=== PATIENT | male | born 1950 | race Caucasian/White ===

== ENCOUNTER → 2016-07-24 | Outpatient (CLI) | payer BC ==
[~2016-07-24] MED LIST: ALLO300T2 PO; ASPEC81 PO; ATOR-24 PO; CIPR1TAB11 PO; CLC/300 PO; CLOP1TAB15 PO; COEN200C17 PO; DOXY100C76 PO; DOXY1TAB6; FURO-85 PO; GLUCTAB7 PO; LPT40 PO; METO25TA56 PO; MULTCHW; PLV75 PO; POTA550T4 PO; RIVA1TAB4 PO; VALS320T PO; VALS320T2 PO
--- NOTE | 2016-07-24 15:55 | DIAGNOSTIC IMAGING REPORT ---
Venous Doppler left leg VENOUS DOPP LOWER EXT UNILAT CLINICAL HISTORY: I48.91 Atrial [id number] Lower leg edema IS SCHEDULED A pain. Edema. TECHNIQUE: Venous Doppler COMPARISON STUDY: None FINDINGS: Normal venous Doppler left leg. Several reactive nodes left inguinal region. Soft tissue edema. IMPRESSION: 1. Study is negative for deep venous thrombosis. 2. Soft tissue edema. 3. Enlarged nodes within the left inguinal region possibly reactive given the patient's history Electronically signed by: Chris Nicholson M.D. 07/24/2016 3:54 PM Dictated Date/Time: 07/24/2016 3:52 PM
--- NOTE | 2016-07-24 15:56 | DIAGNOSTIC IMAGING REPORT ---
ARTERIAL DOPPLER ULTRASOUND OF THE [LOWER EXTREMITY CLINICAL HISTORY: Right lower leg edema. Atrial fibrillation. COMPARISON STUDY: No previous studies for comparison. FINDINGS: Brachial arm systolic pressures are 138 mmHg on the right and 130 mmHg on the left. Posterior tibial systolic pressures are 1 to 34 mmHg in the right and 1 44 mmHg on the left. Dorsalis pedis systolic pressures are 123 mmHg on the right and 1 33 mmHg on the left. This pena ankle arm indices of 0.97 on the right and 1.0 for the left. There is triphasic flow within the left common femoral superficial femoral and popliteal arteries. There is triphasic flow within the left anterior tibial, posterior tibial and peroneal arteries. No high velocity jets are visualized. IMPRESSION: No evidence of left lower extremity arterial stenosis. Electronically signed by: Kan Ariza M.D. 07/24/2016 3:55 PM Dictated Date/Time: 07/24/2016 3:53 PM
== END | disposition home or self-care (01) ==
LOC: C.ULTR 14:49
PROVIDERS: ATTEND Physician Assistant
DX: I48.91 Unspecified atrial fibrillation (principal); R60.0 Localized edema; R59.9 Enlarged lymph nodes, unspecified

== ENCOUNTER → 2016-07-24 | Outpatient (CLI) | payer BC ==
[2016-07-24 16:48] LABS: LYME DISEASE AB IGM NEG (NEG)
[2016-07-24 16:51] LABS: LYME DISEASE AB IGG NEG (NEG)
== END | disposition home or self-care (01) ==
LOC: C.LAB1850 11:32
PROVIDERS: ATTEND Physician Assistant
DX: I48.91 Unspecified atrial fibrillation (principal); T14.8 Other injury of unspecified body region; W57.XXXA Bitten or stung by nonvenomous insect and other nonvenomous arthropods, initial encounter; R60.0 Localized edema; R59.9 Enlarged lymph nodes, unspecified

== ENCOUNTER → 2016-08-13 | Outpatient (CLI) | payer BC ==
[2016-08-13 13:17] LABS: BASO % 0.9 %; BASO ABS # 0.04 K/uL (0-0.2); COMPLETE YES; EOS % 3.2 %; HEMATOCRIT 36.3 % (42-52); LYMPH % 27.2 %; LYMPH ABS # 1.18 K/uL (1.2-3.4); MEAN CELL VOLUME 99.5 fL (80-100); MEAN CORPUSCULAR HEMOGLOBIN 33.4 pg (25-34); MEAN CORPUSCULAR HGB CONC 33.6 g/dl (32-36); MEAN PLATELET VOLUME 10.3 fL (7.4-10.4); MONO % 12.7 %; PLATELET COUNT 188 K/uL (130-400); RED BLOOD COUNT 3.65 M/uL (4.7-6.1); WHITE BLOOD COUNT 4.34 K/uL (4.8-10.8)
[2016-08-13 14:56] LABS: ALT/SGPT 55 U/L (12-78); AST/SGOT 47 U/L (15-37); BLOOD UREA NITROGEN 14 mg/dl (7-18); BUN/CREATININE RATIO 13.9 (10-20); CALCIUM 8.9 mg/dl (8.5-10.1); CARBON DIOXIDE 28 mmol/L (21-32); CHLORIDE 99 mmol/L (98-107); GLUCOSE 110 mg/dl (70-99); POTASSIUM 4.4 mmol/L (3.5-5.1); SODIUM 134 mmol/L (136-145); URIC ACID 3.7 mg/dl (2.6-7.2)
[2016-08-13 15:04] LABS: ALKALINE PHOSPHATASE 155 U/L (45-117); PROSTATE SPECIFIC ANTIGEN 0.579 ng/ml (0.000-4.000)
--- NOTE | 2016-08-21 06:23 | CODING QUERY MEDICAL NECESSITY ---
CQSUPPORTING DIAGNOSIS NEEDED A supporting diagnosis is required for the test/procedure performed on this patient in order for us to be reimbursed by the patient's insurance. Please provide a supporting diagnosis for the following test/procedure listed below next to the test name along with your signature. *If there is no additional diagnosis for this patient that would support the following test/procedure please document that below next to the test/procedure. Test(s)/Procedure(s) that require a supporting diagnosis: DOS 08/13/16 PROSTATE SPECIFIC Provider Signature: Date: Thank you Zoya Shirley [employer] Once completed, please kindly fax back to [phone] For questions please call [phone]
== END | disposition home or self-care (01) ==
LOC: C.LABBC 10:13
PROVIDERS: ATTEND Internal Medicine
DX: E83.110 Hereditary hemochromatosis (principal)

== ENCOUNTER 2016-08-20 07:05 | Observation (INO) | payer BC ==
[~2016-08-20] VITALS: Ht 180.3 cm; Wt 79.0 kg
[2016-08-20] VITALS (10 sets, daily range): BP systolic 111–148; BP diastolic 64–100; PULSE 74–97; TEMP 36.3–36.8; O2SAT 95–100; Ht 180.3 cm; Wt 79.0 kg
[~2016-08-20 07:05] MED LIST changes: -ASPEC81 PO; -ATOR-24 PO; -CIPR1TAB11 PO; -CLC/300 PO; -CLOP1TAB15 PO; -COEN200C17 PO; -DOXY100C76 PO; -FURO-85 PO; -GLUCTAB7 PO; -LPT40 PO; -METO25TA56 PO; -PLV75 PO; -POTA550T4 PO; -RIVA1TAB4 PO; -VALS320T2 PO
[2016-08-20] MEDS ORDERED: VALS320T2 PO (07:35)
[2016-08-20] MEDS ORDERED: METO25TA56 PO (07:35)
[2016-08-20] MEDS ORDERED: RIVA1TAB4 PO (07:35)
[2016-08-20] MEDS ORDERED: HEPARIN SOD (PORCINE) 1000 UNIT/ML 10 ML VIAL ONE (08:00)
[2016-08-20] MEDS ORDERED: NiCARDipine HCL INJ 2.5 MG/ML 10 ML AMP ONE (08:00)
[2016-08-20] MEDS ORDERED: FENTANYL CITRATE INJ 50 MCG/1 ML 2 ML VIAL ONE (08:00)
[2016-08-20] MEDS ORDERED: MIDAZOLAM HCL 1 MG/ML 2ML VIAL ONE (08:00)
[2016-08-20] MEDS ORDERED: NITROGLYCERIN/D5W 100MCG/ML 20ML SYR ONE (08:01)
[2016-08-20] MEDS ORDERED: ADENOSINE IV SOLN 3 MG/ML 20 ML VIAL ONE (08:35)
[2016-08-20] MEDS ORDERED: CLOPIDOGREL BISULFATE 300 MG TAB PO ONE (09:17)
[2016-08-20] MEDS ORDERED: IV FLUIDS COMPLETED PRN (09:30)
[2016-08-20] MEDS ORDERED: ONDANSETRON INJ 2 MG/ML 2 ML VIAL IV PRN (09:45)
[2016-08-20] MEDS ORDERED: ACETAMINOPHEN 325 MG TAB PO PRN (09:45)
[2016-08-20] MEDS ORDERED: SODIUM CHLORIDE 0.9% 1000ML 1,000 ML IV SCH (09:45)
--- NOTE | 2016-08-20 09:47 | History & Physical Bridge Note ---
H&P Re-Evaluation Bridge Note: I have examined the patient, reviewed the History & Physical and in the interval since the performance of the History & Physical I have noted the following changes of clinical significance: No changes noted
--- NOTE | 2016-08-20 09:47 | Procedure Note ---
Post-Mod Sedation Assessment General Date of Moderate Sedation August 20, 2016. Vital Signs: Vital Signs Past 12 Hours Date Time Temp Pulse Resp B/P Pulse Ox O2 Delivery O2 Flow Rate FiO2 08/20/16 09:35 Room Air 08/20/16 09:30 Room Air 08/20/16 09:25 94 16 123/98 96 Room Air 08/20/16 07:22 36.4 94 16 148/100 100 Room Air Review - Discharge Criteria Vital Signs Stable: Yes Alert/Oriented/Conversant: Yes Returned to Baseline Mental St: Yes Nausea Absent/Minimal: Yes Pain/Discomfort/Absent/Minimal: Yes Normal/Baseline Respirations: Yes Active Bleeding?: No Pt Received D/C Instructions: N/A Prescriptions Given: None Specific Proced. D/C Criteria Distal Pulses Present (Cardiac: Yes Groin site assessed-Card Cath: N/A Voided Prior To Discharge: N/A Discharged Patients Adult Escort/Transportation: Yes
--- NOTE | 2016-08-20 09:47 | Procedure Note ---
Pre-Mod Sedation Assessment General Date of Moderate Sedation: August 20, 2016. Vital Signs: Vital Signs Past 12 Hours Date Time Temp Pulse Resp B/P Pulse Ox O2 Delivery O2 Flow Rate FiO2 08/20/16 09:35 Room Air 08/20/16 09:30 Room Air 08/20/16 09:25 94 16 123/98 96 Room Air 08/20/16 07:22 36.4 94 16 148/100 100 Room Air Review Cardiovascular: regular rate, rhythm, no edema Abdomen: normal bowel sounds, non tender Lungs: chest non-tender, lungs clear, normal breath sounds Airway Class: II Pre-Sedation Airway Assessment Oral Cavity: WNL Able to Visualize Vocal Cords: Yes Short Thick Neck: No Hx of Sleep Apnea: No Smoking Status: Never Smoker Mallampati Classification: Class II ASA Classification: Class II Procedure Planning Contraindications-for Mod Sed: None Yes Notes The planned sedation has been discussed with the patient and consent obtained. I have identified the patient, determined the appropriateness of sedation and have assessed the patient immediately prior to the procedure. All medicine(s) and interventions are by my order.
--- NOTE | 2016-08-20 10:01 | Cardiac Catheterization ---
Procedure Note Procedure Date August 20, 2016. Pre-Procedure Diagnosis Cardiomyopathy AUC Score 7 Post-Procedure Diagnosis Severe CAD, Successful PCI, Normal Intracardiac Pressures Procedure(s) Performed Coronary Angiography, Left Heart Cath, Drug Eluting Stent, Fractional Flow Felt Talkback Host Dr. Bagley Medication(s) Clopidogrel, Fentanyl, Heparin, Nicardipine, Nitroglycerin, Versed, Lidocaine 1% , Adenosine Summary of Findings Indication: Cardiomyopathy Access: 5Fr Right Radial Artery Catheters: [place], JL 3.5; JL 3.5 guide Findings: LM - Short, luminal irregularities LAD - Heavily calcified proximally with mild luminal irregularities, 60-70% mid LAD stenosis at take-off of small 2nd diagonal; distal luminal irregularities Circumflex - Luminal irregularities RCA - Dominant, calcified proximally; 20-30% mid RCA; distal luminal irregularities LVEDP - 15 FFR of mid LAD -- 0.75 -- PCI -- Antithrombotic therapy: Heparin, Clopidogrel Procedure: LM cannulated with 5Fr JL3.5 guide BMW wire passed across lesion into distal vessel Mid LAD lesion predilated with 2.5 compliant balloon Dilated lesion stented with 2.75 x 18 Resolute TITO Stent post-dilated with 3.0 noncompliant balloon IC vasodilators administered for spasm Post procedure ARVIN 3 flow, stent well expanded with minimal residual stenosis and no apparent cardiac complications. Arterial Closure: TR Band Summary: 1. Severe single vessel coronary artery disease - 60-70% mid LAD stenosis (FFR positive at 0.75) 2. Normal intracardiac filling pressure 3. Nonischemic cardiomyopathy (degree of cardiomyopathy out of proportion to amount of CAD) 4. 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 Continue triple therapy with Xarelto, Clopidogrel, ASA 81 mg for 1 month --> then change to Xarelto, Clopidogrel for 1 year Continue AI/Beta-latoya and AF rate control for presumed NICM Start high-intensity statin and continue ASCVD risk factor modification Consult cardiac Rehab Hemodynamics Rest Ao: 128/76/102 Final Ao: 115/68/89 LV: 111/15 Recommendations Medical therapy and/or Counseling, PCI without planned CABG Specimens None Radiation Exposure (mGy) 746 Contrast (mls) 125 Visi Fluids (cc crystalloids) 120 NS Drains None Anesthesia Moderate (8:17 -- 09:25) Procedural Complication(s) None Disposition PCU ACC Data Cardiac Status Clinical evaluation leading to the procedure CAD Presntation: Sx unlikely to be ischemic Anginal Classification: CCS II Heart Failure: Yes, NYHA Class: CCS II Cardiogenic Shock w/in 24Hrs: No Cardiac Arrest w/in 24Hrs: No Imaging studies past 6 months: Yes Stress studies past 6 months: No Standard Exercise Stress Test: No Stress Echocardiogram: No Stress Testing w/SPECT MPI: No Cardiac CTA: No Coronary Anatomy Dominant: Right Left Main (% Stenosis): Normal LAD (% Stenosis): Mid (60-70) Circumflex (% Stenosis): Normal RCA (% Stenosis): Normal Diagnostic Physician's Name: Williams Bagley MD Status: Elective Closure Device Percutaneous Entry Location: Radial Closure Device: Radial Band Recommendations: Medical therapy and/or Counseling, PCI without planned CABG PCI Indication: Stable Angina Lesion Segment Name: mid LAD Culprit Artery: Yes Stenosis Prior to Rx (%): 70 Chronic Total Occlusion: No IVUS: No FFR: Yes Ratio: less than or equal to 0.75% Pre-Procedure ARVIN Flow: 3 Previously Treated Lesion: No Lesion Complexity: Non-High/Non-C Lesion Length (mm): 15 Thrombus Present: No Bifurcation Lesion: No Guidewire Across Lesion: Yes Guidewire: Stenosis Post-Procedure (%): 0 Post-Procedure ARVIN Flow: 3 Device(s) Deployed: Yes Intraprocedure Events Significant Dissection: No Perforation: No
[2016-08-20 11:31] LABS: MEAN CELL VOLUME 98.1 fL (80-100); MEAN CORPUSCULAR HEMOGLOBIN 33.8 pg (25-34); MEAN PLATELET VOLUME 10.3 fL (7.4-10.4); PLATELET COUNT 149 K/uL (130-400); RED BLOOD COUNT 3.67 M/uL (4.7-6.1); WHITE BLOOD COUNT 6.35 K/uL (4.8-10.8)
[2016-08-20 11:42] LABS: MEAN CORPUSCULAR HGB CONC 34.4 g/dl (32-36)
[2016-08-20 12:03] LABS: CREATININE 0.98 mg/dl (0.60-1.40)
[2016-08-20] MEDS: METOPROLOL TARTRATE 25 MG TAB PO SCH (20:41)
[2016-08-21 04:18] VITALS: BP 121/81; PULSE 86; TEMP 36.6; O2SAT 96
[2016-08-21 06:51] LABS: BASO % 0.5 %; BASO ABS # 0.03 K/uL (0-0.2); COMPLETE YES; EOS % 3.6 %; HEMATOCRIT 38.1 % (42-52); LYMPH % 27.5 %; LYMPH ABS # 1.54 K/uL (1.2-3.4); MEAN CELL VOLUME 97.4 fL (80-100); MEAN CORPUSCULAR HEMOGLOBIN 33.8 pg (25-34); MEAN CORPUSCULAR HGB CONC 34.6 g/dl (32-36); MEAN PLATELET VOLUME 10.2 fL (7.4-10.4); MONO % 13.8 %; NEUT % 54.6 %; PLATELET COUNT 162 K/uL (130-400); RED BLOOD COUNT 3.91 M/uL (4.7-6.1)
[2016-08-21 07:22] LABS: BUN/CREATININE RATIO 12.3 (10-20); CALCIUM 8.5 mg/dl (8.5-10.1); POTASSIUM 3.8 mmol/L (3.5-5.1)
[2016-08-21] MEDS: METOPROLOL TARTRATE 25 MG TAB PO SCH (07:47)
[2016-08-21 08:13] VITALS: BP 132/63; PULSE 84; TEMP 37; O2SAT 97
[2016-08-21] MEDS ORDERED: ATORVASTATIN 40 MG TAB PO SCH (09:00)
[2016-08-21] MEDS ORDERED: RIVAROXABAN 10 MG TAB PO SCH (09:00)
[2016-08-21] MEDS ORDERED: ASPIRIN 81 MG ECTAB PO SCH (09:00)
[2016-08-21] MEDS ORDERED: ALLOPURINOL 300 MG TAB PO SCH (09:00)
[2016-08-21] MEDS ORDERED: CLOPIDOGREL BISULFATE 75 MG TAB PO SCH (09:00)
[2016-08-21] MEDS ORDERED: VALSARTAN/HCTZ 160/12.5 MG TAB PO SCH (09:00)
[2016-08-21 09:27] VITALS: BP 132/63; PULSE 84; TEMP 37; O2SAT 97
[2016-08-21] MEDS ORDERED: LPT40 PO (09:33)
[2016-08-21] MEDS ORDERED: PLV75 PO (09:33)
[2016-08-21] MEDS ORDERED: ASPEC81 PO (09:33)
--- NOTE | 2016-08-21 09:35 | Discharge Instructions ---
Discharge Instructions Procedure Procedure Date: August 21, 2016. Reason for Visit: Cardiomyopathy. Discharge Discharge Date: August 21, 2016. Discharge Diagnosis: Nonischemic cardiomyopathy/Coronary artery disease Last Recorded Wt (Kilograms): 79.000 Anesthesia Post Anesthesia Instructions: If you have had IV Sedation: * Do not drive today. * Resume driving when [employer] permits. * Do not make important decisions or sign legal documents today. * Call surgeon for: 1. Temperature elevations greater than 101 degrees F. 2. Uncontrollable pain. 3. Excessive bleeding. 4. Persistent nausea and vomiting. 5. Medication intolerance (nausea, vomiting or rash). * For nausea and vomiting use only clear liquids such as: tea, soda, bouillon until nausea subsides, then gradually increase diet as tolerated. * If you have any concerns or questions, call your surgeon's office. If physician is unavailable and it is an emergency, call 911 or go to the nearest emergency room. Instructions Activity Recommendations: limitations as noted below Recommended Home Diet: low sodium, low cholesterol Allergies: Coded Allergies: No Known Allergies (Unverified , 01/19/13) Follow Up Additional Instructions: ACTIVITY RECOMMENDATIONS: It is common to feel weak and fatigue for a few days. * Do not drive or operate any motorized equipment for the next day. * Limit stair usage (2 or 3 trips a day only) for the next day. * Do not lift anything heavier than 10 pounds for the next three days. * Do not engage in vigorous exercise or any sports for the next five days. * You may shower the day after your procedure, but do not immerse the area for three days. Cleanse the site gently with soap and water. SPECIAL CARE INSTRUCTIONS: * You may replace the pressure dressing or band-aid the morning after the procedure. * After your procedure, it is normal to have a small bruise or small lump at the site. Examine your site daily for any change in the bruise or lump, redness, swelling, drainage or numbness. Notify your doctor if any change. BLEEDING: * If there is a small amount of bleeding at the site, lie down and apply firm pressure with a clean cloth for ten minutes. When the bleeding stops, lie quietly keeping the procedure limb straight for six hours. Notify your doctor as soon as possible. * If the bleeding does not stop after ten minutes or if there is a large amount of bleeding or spurting, call 911 immediately. Continue to lie down and hold firm pressure until help arrives. SKIN IRRITATION: * You may experience some redness and/or swelling in the area where radiation was administered. If any skin irritation occurs, please contact your family physician. FOLLOW UP VISIT: Keep any scheduled doctor appointments. Follow-up with: Follow-up with Brandy Stroud or Dr. Bagley in 2-3 weeks [facility] Recommendations: Call your doctor if: * Temperature above 101 degrees * Pain not relieved by pain medicine ordered * There is increased drainage or redness from any incision * You have any unanswered questions or concerns. Your Doctors Instructions noted above were prepared by provider Kali Bagley. Patient Signature Section: Patient Instructions Signature Page Stewart Johnson Patient (or Guardian) Signature/Date: I have read and understand the instructions given to me by my caregivers. Caregiver/RN/Doctor Signature/Date: The above-named patient and/or guardian has received patient instructions on this date. + Original Patient Signature Page (only) stays with chart. Please make copy for patient.
--- NOTE | 2016-08-22 13:59 | DISCHARGE SUMMARY ---
PRINCIPAL DIAGNOSES: 1. Nonischemic cardiomyopathy. 2. Coronary artery disease. 3. Atrial fibrillation. 4. Questionable Lyme disease. PROCEDURES: 1. Coronary angiography. 2. FFR assessment of mid LAD lesion. 3. PCI with drug-eluting stent placement to mid LAD. HISTORY OF PRESENT ILLNESS: Mr. Johnson is a very pleasant 66-year-old man with a history of hypertension, hyperlipidemia, anemia, questionable hemochromatosis and recently diagnosed atrial fibrillation who was also recently diagnosed with a new cardiomyopathy with severe LV dysfunction, EF 20%. The patient was referred for cardiac catheterization for further evaluation. HOSPITAL COURSE: The patient underwent cardiac catheterization via right radial artery. He was found to have a left main, circumflex without significant disease. His RCA was dominant with only mild 20-30% narrowing in the mid segment. LAD showed heavy calcifications proximally, only mild luminal irregularities and 60-70% mid LAD stenosis at the takeoff of his second diagonal. As the lesion was thought to be intermediate FFR was undertaken and was positive at 0.75. His LV filling pressures were normal with an LVEDP of 15. Decision was made to proceed with PCI of hemodynamically significant mid LAD lesion. A 2.75 x 18 mm Resolute drug-eluting stent was placed. This was post-dilated to 3.0. The procedure was uncomplicated and good angiographic result was obtained. Post-procedure, the patient was admitted to telemetry for further observation. He had no events on telemetry overnight. He remained in rate controlled atrial fibrillation. He was chest pain free, he had no access site complications and patient was discharged to home with plan for continued followup with his primary care physician Dr. Sommer and cardiology followup in 3-4 weeks. Overall, findings were suggestive overall continue to feel that patient's degree of LV function is out of proportion to the amount of coronary artery disease and primarily his LV function is due to a nonischemic process, hopeful though that with PCI to LAD will help with improvement in LV function and improve symptoms. Going forward, the patient will be continued on aspirin, Plavix, and Xarelto for 1 month. Afterwards would drop to Xarelto and Plavix going forward. If the patient continues to be in atrial fibrillation will consider cardioversion at repeat visit. DISCHARGE MEDICATIONS: 1. Aspirin 81 mg daily. 2. Atorvastatin 40 mg daily. 3. Clopidogrel 75 mg daily. 4. Allopurinol 300 mg daily. 5. Metoprolol tartrate 25 mg b.i.d. 6. Xarelto 20 mg daily. 7. Valsartan/hydrochlorothiazide 320/25 mg daily. MTDD
[2016-09-20] MEDS ORDERED: GLUCTAB7 PO (06:50)
[2016-09-20] MEDS ORDERED: CLOP1TAB15 PO (06:50)
[2016-09-20] MEDS ORDERED: FURO-85 PO (06:50)
[2016-09-20] MEDS ORDERED: ATOR-24 PO (06:50)
[2016-09-20] MEDS ORDERED: DOXY100C76 PO (06:55)
[2016-09-20] MEDS ORDERED: COEN200C17 PO (06:55)
[2016-09-20] MEDS ORDERED: POTA550T4 PO (06:55)
[2016-09-20] MEDS ORDERED: CLC/300 PO (07:57)
[2016-10-10] MEDS ORDERED: CIPR1TAB11 PO (09:39)
== END 2016-08-21 10:49 | disposition home or self-care (01) ==
LOC: ENRESERVDT → ENRESERVTM → C.CATH 07:05 → C.2T 10:48
PROVIDERS: ADMIT Internal Medicine Interventional Cardiology; ATTEND Internal Medicine Interventional Cardiology
DX: I25.10 Atherosclerotic heart disease of native coronary artery without angina pectoris (principal); I48.91 Unspecified atrial fibrillation; I10 Essential (primary) hypertension; R60.0 Localized edema; E78.1 Pure hyperglyceridemia; M10.9 Gout, unspecified; D64.9 Anemia, unspecified

== ENCOUNTER → 2016-09-20 | Day surgery (SDC) | payer BC ==
[2016-09-20] VITALS (7 sets, daily range): BP systolic 103–146; BP diastolic 45–87; PULSE 52–90; TEMP 36.4; O2SAT 95–100; Ht 180.3 cm; Wt 78.5 kg
[~2016-09-20] VITALS: Ht 180.3 cm; Wt 78.5 kg
[~2016-09-20] MED LIST changes: +ASPEC81 PO; +ATOR-24 PO; +CIPR1TAB11 PO; +CLC/300 PO; +CLOP1TAB15 PO; +COEN200C17 PO; +DOXY100C76 PO; -DOXY1TAB6; +FURO-85 PO; +GLUCTAB7 PO; +LIDOCAINE HCL 2% 2 ML VIAL (20MG/ML) ONE; +LPT40 PO; +METO25TA56 PO; +PLV75 PO; +POTA550T4 PO; +PROPOFOL IV EMULSION 10 MG/ML 20 ML VIAL IV ONE; +RIVA1TAB4 PO; -VALS320T PO; +VALS320T2 PO
--- NOTE | 2016-09-20 07:48 | Procedure Note ---
Procedure Note Procedure Date Sep 20, 2016. Procedure Description Procedure Name: External Electrical Cardioversion Procedure time out: patient ID confirmed, correct procedure Consent obtained: written Time of procedure: 07:30 Performed by: attending Indications: diagnostic Contraindications: none Description: External synchronized cardioversion Indication: Persistent atrial fibrillation, possible tachyarrhythmia induced cardiomyopathy Anesthesia provided by Dr. Mancuso. External pads placed in AP position. Received 1 synchronized shock at 200 J Converted to sinus bradycardia with PACs. Complications: none Patient tolerated procedure: well Post-procedure vital signs: reviewed and stable Comments: Successful Electrical Cardioversion
--- NOTE | 2016-09-20 08:02 | Discharge Instructions ---
Discharge Instructions Procedure Procedure Date: Sep 20, 2016. Reason for Visit: Afib With Anethesia. Discharge Discharge Date: Sep 20, 2016. Discharge Diagnosis: Atrial Fibrillation Last Recorded Wt (Kilograms): 78.5 Anesthesia Post Anesthesia Instructions: If you have had General Anesthesia or IV Sedation: * Do not drive today. * Resume driving when surgeon permits. * Do not make important decisions or sign legal documents today. * Call surgeon for: 1. Temperature elevations greater than 101 degrees F. 2. Uncontrollable pain. 3. Excessive bleeding. 4. Persistent nausea and vomiting. 5. Medication intolerance (nausea, vomiting or rash). * For nausea and vomiting use only clear liquids such as: tea, soda, bouillon until nausea subsides, then gradually increase diet as tolerated. * If you have any concerns or questions, call your surgeon's office. If physician is unavailable and it is an emergency, call 911 or go to the nearest emergency room. Instructions Activity Recommendations: limitations (As noted above) Recommended Home Diet: resume previous diet Allergies: Coded Allergies: No Known Allergies (Unverified , 01/19/13) Follow Up Follow-up with: Follow-up as scheduled with cardiology. Follow-up with wound clinic [facility] Recommendations: Call your doctor if: * Temperature above 101 degrees * Pain not relieved by pain medicine ordered * There is increased drainage or redness from any incision * You have any unanswered questions or concerns. Your Doctors Instructions noted above were prepared by provider Kali Bagley. Patient Signature Section: Patient Instructions Signature Page Stewart Johnson Patient (or Guardian) Signature/Date: I have read and understand the instructions given to me by my caregivers. Caregiver/RN/Doctor Signature/Date: The above-named patient and/or guardian has received patient instructions on this date. + Original Patient Signature Page (only) stays with chart. Please make copy for patient.
--- NOTE | 2016-09-20 08:50 | Anesthesiology Progress Note ---
Anesthesia Post Op Note Date & Time Sep 20, 2016 at 08:49 Vital Signs Pain Intensity: 0 Vital Signs Past 12 Hours Date Time Temp Pulse Resp B/P (MAP) Pulse Ox O2 Delivery O2 Flow Rate FiO2 09/20/16 08:30 57 16 98/49 (65) 98 Room Air 09/20/16 08:15 53 16 93/49 (64) 98 Room Air 09/20/16 08:00 57 16 103/60 (74) 99 Room Air 09/20/16 07:45 53 16 108/57 (74) 100 Room Air 09/20/16 07:41 52 16 105/45 (65) 100 Room Air 09/20/16 07:40 53 14 108/46 100 Nasal Cannula 4 09/20/16 07:39 53 10 100 Nasal Cannula 4 09/20/16 07:38 54 10 103/45 100 Nasal Cannula 4 09/20/16 07:35 78 12 140/82 100 Nasal Cannula 4 09/20/16 07:33 88 16 133/87 100 Nasal Cannula 4 09/20/16 06:51 36.4 90 16 146/86 95 Room Air Notes Mental Status: alert / awake / arousable, participated in evaluation Pt Amnestic to Procedure: Yes Nausea / Vomiting: adequately controlled Pain: adequately controlled Airway Patency, RR, SpO2: stable & adequate BP & HR: stable & adequate Hydration State: stable & adequate Anesthetic Complications: no major complications apparent
== END | disposition home or self-care (01) ==
LOC: C.CATH 06:33
PROVIDERS: ATTEND Internal Medicine Interventional Cardiology
DX: I48.1 Persistent atrial fibrillation (principal); I48.2 Chronic atrial fibrillation; I11.0 Hypertensive heart disease with heart failure; I50.21 Acute systolic (congestive) heart failure; I25.10 Atherosclerotic heart disease of native coronary artery without angina pectoris; L97.909 Non-pressure chronic ulcer of unspecified part of unspecified lower leg with unspecified severity; Z95.5 Presence of coronary angioplasty implant and graft; E83.110 Hereditary hemochromatosis; E78.5 Hyperlipidemia, unspecified; D64.9 Anemia, unspecified; Z79.01 Long term (current) use of anticoagulants; Z79.82 Long term (current) use of aspirin; Z79.899 Other long term (current) drug therapy

== ENCOUNTER → 2016-10-07 | Outpatient (CLI) | payer BC ==
[~2016-10-07] MED LIST changes: -ASPEC81 PO; -CLC/300 PO; -LIDOCAINE HCL 2% 2 ML VIAL (20MG/ML) ONE; -LPT40 PO; -PLV75 PO; -PROPOFOL IV EMULSION 10 MG/ML 20 ML VIAL IV ONE
[2016-10-07 13:13] LABS: BASO % 0.9 %; BASO ABS # 0.05 K/uL (0-0.2); COMPLETE YES; EOS % 3.7 %; IG% 0.2 %; LYMPH % 30.7 %; LYMPH ABS # 1.64 K/uL (1.2-3.4); MEAN CELL VOLUME 94.5 fL (80-100); MEAN CORPUSCULAR HEMOGLOBIN 33.6 pg (25-34); MEAN CORPUSCULAR HGB CONC 35.5 g/dl (32-36); MEAN PLATELET VOLUME 10.1 fL (7.4-10.4); MONO % 9.9 %; NEUT % 54.6 %; PLATELET COUNT 192 K/uL (130-400); RED BLOOD COUNT 4.02 M/uL (4.7-6.1); WHITE BLOOD COUNT 5.35 K/uL (4.8-10.8)
[2016-10-07 13:43] LABS: ESTIMATED AVERAGE GLUCOSE 117 mg/dl; HA1C FLAG Normal (Normal)
[2016-10-07 13:56] LABS: ALT/SGPT 52 U/L (12-78); AST/SGOT 48 U/L (15-37); BLOOD UREA NITROGEN 14 mg/dl (7-18); BUN/CREATININE RATIO 16.4 (10-20); CALCIUM 9.2 mg/dl (8.5-10.1); CARBON DIOXIDE 28 mmol/L (21-32); CHLORIDE 94 mmol/L (98-107); CHOLESTEROL 113 mg/dl (0-200); CREATININE 0.86 mg/dl (0.60-1.40); GLUCOSE 90 mg/dl (70-99); MAGNESIUM 2.2 mg/dl (1.8-2.4); POTASSIUM 4.1 mmol/L (3.5-5.1); SODIUM 130 mmol/L (136-145)
[2016-10-07 14:07] LABS: CHOLESTEROL/HDL RATIO 1.5; HDL CHOLESTEROL 77 mg/dl; LDL CHOLESTEROL CALCULATED 24 mg/dl; TRIGLYCERIDES 61 mg/dl (0-150); VERY LOW DENSITY LIPOPROT CALC 12 mg/dl
== END | disposition home or self-care (01) ==
LOC: C.LAB1850 11:34
PROVIDERS: ATTEND Internal Medicine
DX: E78.1 Pure hyperglyceridemia (principal)

== ENCOUNTER → 2017-04-10 | Outpatient (CLI) | payer BC ==
[~2017-04-10] MED LIST changes: -CIPR1TAB11 PO; -DOXY100C76 PO
[2017-04-10 13:13] LABS: BASO % 0.9 %; BASO ABS # 0.04 K/uL (0-0.2); EOS % 2.8 %; EOS ABS # 0.12 K/uL (0-0.5); HEMATOCRIT 35.5 % (42-52); HEMOGLOBIN 12.1 g/dL (14.0-18.0); LYMPH % 27.2 %; LYMPH ABS # 1.18 K/uL (1.2-3.4); MEAN CELL VOLUME 103.5 fL (80-100); MEAN CORPUSCULAR HEMOGLOBIN 35.3 pg (25-34); MEAN CORPUSCULAR HGB CONC 34.1 g/dl (32-36); MEAN PLATELET VOLUME 10.4 fL (7.4-10.4); MONO % 17.7 %; MONO ABS # 0.77 K/uL (0.11-0.59); NEUT % 51.4 %; NEUT ABS # 2.23 K/uL (1.4-6.5); PLATELET COUNT 153 K/uL (130-400); RED CELL DISTRIBUTION WIDTH CV 13.1 % (11.5-14.5); RED CELL DISTRIBUTION WIDTH SD 49.3 fL (36.4-46.3); WHITE BLOOD COUNT 4.34 K/uL (4.8-10.8)
[2017-04-10 13:27] LABS: HEMOGLOBIN A1C 5.4 % (4.5-5.6)
[2017-04-10 14:14] LABS: ALBUMIN 3.9 gm/dl (3.4-5.0); ALKALINE PHOSPHATASE 140 U/L (45-117); ALT/SGPT 39 U/L (12-78); AST/SGOT 46 U/L (15-37); BLOOD UREA NITROGEN 17 mg/dl (7-18); CARBON DIOXIDE 28 mmol/L (21-32); CREATININE 1.06 mg/dl (0.60-1.40); GLUCOSE 98 mg/dl (70-99); SODIUM 133 mmol/L (136-145); TOTAL PROTEIN 7.7 gm/dl (6.4-8.2)
[2017-04-10 14:26] LABS: CHOLESTEROL 103 mg/dl (0-200); LDL CHOLESTEROL CALCULATED 2 mg/dl
== END | disposition home or self-care (01) ==
LOC: C.LABBC 11:19
PROVIDERS: ATTEND Internal Medicine
DX: E78.1 Pure hyperglyceridemia (principal)

== ENCOUNTER 2020-08-17 10:02 | Observation (INO) ==
--- NOTE | 2020-08-14 15:32 | Anesthesiology Consultation ---
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 Preoperative COVID19 testing completed on 08/14, results NEGATIVE. Received preop labs from [facility] that were completed on 08/11/2020. Notably, sodium markedly low at 120. Surgeons office notified and advised that ordering provider should review and contact patient for possible emergent evaluation. Surgeons office was not immediately able to reach the patient. In the meantime, reviewed newly completed office note from CYNTHIA Dwyer with nephrology from 08/11/2020. She had reviewed the 08/11/2020 labs and requested that patient repeat labs today. I was able to reach the patient and instructed him to come to the hospital as soon as possible to repeat these labs. PCP Clearance Appointment 08/11/20 = "Blood work from Friday08/11/20 has been reviewed...Will have patient repeat labs today. Depending on results will evaluate if patient is acceptable for surgery." Repeat labs improved with Na 126. Received subsequent clearance letter from Dr. Sommer stating "Na is usually 128-132. Probably reset osmostat. Confirmation pending. Repeat Na 08/14 was 126. Would repeat immediately before surg - OK if 126 or higher." Cardiology office visit 08/26/19 "Continues to do well from a cardiac standpoint. Remains active and feeling well. NYHA class I equivalent symptoms. Weight stable on maintenance diuretic. On exam today appears well-perfused with no significant congestion. On appropriate guideline directed medical therapy. Remains in persistent atrial fibrillation but well rate controlled. Continue current beta-latoya, anticoagulation with Xarelto. ASCVD risk factors being addressed. Blood pressure well controlled, LDL excellent on current statin. Follow-up in 1 year." Case d/w Dr. Duvall. Will recheck Na AM DOS to ensure stability. INR 3.8 on pre-op labs. Only AC is Xarelto. Spoke to surgeon's office. They were notified of the critical value on Friday 08/11, and advised the patient to stop his Xarelto. It was stopped on 08/12, plan to recheck PT/INR AM DOS. Chart Review Chart Review: Acceptable Risk for Surgery (pending evaluation AM DOS) and Patient NOT seen in Pre Admission Testing History Surgery Operation Date: 08/17/20 11:30 Proposed Procedures p Left Foot Fifth Ray Resection - Rogelio Almanza MD s Achilles Tendon Lengthening - Rogelio Almanza MD Height/Weight Height: 5 ft 10 in Weight: 77.111 kg Allergies Allergy/AdvReac Type Severity Reaction Status Date / Time No Known Allergies Allergy Verified 08/11/20 08:58 Medications Home Medications Medication Instructions Recorded Confirmed Last Taken aspirin 81 mg chewable tablet 81 mg PO QAM #30 tab 10/20/18 08/11/20 05/17/19 07:30 Glucosamine Chondroitin 2 cap PO QAM 05/06/19 08/11/20 05/17/19 07:30 doxycycline monohydrate 100 mg PO Q2D 05/06/19 08/11/20 05/17/19 07:30 sildenafil 50 mg PO DAILY PRN 05/06/19 08/11/20 Unknown furosemide 20 mg tablet 20 mg PO QAM #90 tab 08/26/19 08/11/20 Unknown rivaroxaban 20 mg tablet 20 mg PO QAM #90 tab 08/26/19 08/11/20 Unknown allopurinol 300 mg tablet 300 mg PO QAM #90 tab 11/26/19 08/11/20 Unknown valsartan 320 1 tab PO QAM #90 tab 11/26/19 08/11/20 Unknown mg-hydrochlorothiazide 25 mg tablet atorvastatin 40 mg tablet 40 mg PO HS #90 tab 02/08/20 08/11/20 Unknown metoprolol succinate 50 mg 75 mg PO QAM #135 tab 05/05/20 08/11/20 Unknown tablet,extended release 24 hr Past Medical History Medical History (Updated 08/15/20 @ 16:33 by Cheko Geiger) Anemia Normocytic, baseline HGB ~ 11-12, with recent drop to ~10 on pre-op labs. Atrial fibrillation Presented to ED 07/2016 with tick bite, found to be in afib RVR. Echo showed severe LV dysfunction --> cath w/ TITO to mid LAD. F/U DR THOMAS Cardiomyopathy LV EF 40% 2018. Chronic systolic (congestive) heart failure EF 40% in 2018. Improved from 20-25% at time of Dx in 2016. Coronary artery disease s/p TITO to mid LAD 07/2016. Elevated ferritin F/U DR TESFAYE. Ferritin has been WNL since 2018 per records. Gout Hemochromatosis HCT has actually been low, persistent Hyperlipidemia Hypertension Hyponatremia Chronically 127-131, but noted to be 120 on pre-op labs. Improved to 126 on 08/14. 125 on 08/15. Will recheck AM DOS. Mitral regurgitation Past Family History Family History Father Family hx of colon cancer Aunt Family history of diabetes mellitus Past Surgical History Surgical History History of arthroscopy LEFT History of cardiac cath WITH 1 STENT-[facility] 2016? History of cardioversion History of colonoscopy Status post insertion of drug-eluting stent into left anterior descending artery for coronary artery disease Social History Smoking Status: Former smoker Smoking End Date: IN COLLEGE X 4 YRS Hx Alcohol Use: Yes Alcohol type: beer alcohol intake frequency: 3 or more drinks per day Hx Substance Use: No Lab Results Anesthesia Preop Results Results Anesthesia Widget: WBC 4.53 K/uL (4.8-10.8) L 08/15/20 Hgb 10.4 g/dL (14.0-18.0) L 08/15/20 Hct 30.1 % (42-52) L 08/15/20 Plt 154 K/uL (130-400) 08/15/20 Na 125 mmol/L (136-145) L 08/15/20 K 4.4 mmol/L (3.5-5.1) 08/15/20 Cl 96 mmol/L (98-107) L 08/15/20 CO2 24 mmol/L (21-32) 08/15/20 BUN 20 mg/dl (7-18) H 08/15/20 Creat 1.17 mg/dl (0.6-1.4) 08/15/20 Glucose Level 116 mg/dl (70-99) H 08/15/20 TSH 3.390 uIu/ml (0.300-4.500) 08/14/20 HA1c 5.9 % (4.5-5.6) H 08/15/20 Testing Laboratory Results 08/11/20 PT: 37.7 PTT: 3.8 INR: 52 *Criticals called to surgeon's office on 08/11/20. Pt stopped Xarelto. Electrocardiogram Date: 08/07/20 Afib with slow ventricular response at 42bpm. ST and TWA, consider inferolateral ischemia. *Afib with slow vent. response and ST and TWA also noted in 2017 EKG in [facility] system. Echocardiogram Date: 08/25/17 (per cardio note) Normal LV size, moderate global dysfunction (EF 40%). No regional wall motion abnormalities. Mildly dilated RV, normal RV function. Moderate mitral regurgitation. Biatrial enlargement. Mild pulmonary hypertension (PASP 40-45 mmHg). No significant changes compared to study on 12/13/16. Cardiac Catheterization Date: 08/20/16 Summary: 1. Severe single vessel coronary artery disease - 60-70% mid LAD stenosis (FFR positive at 0.75) 2. Normal intracardiac filling pressure 3. Nonischemic cardiomyopathy (degree of cardiomyopathy out of proportion to amount of CAD) 4. Successful PCI of mid LAD with 2.75x 18 Xience TITO
[~2020-08-17 10:02] MED LIST changes: -ALLO300T2 PO; -ATOR-24 PO; -CLOP1TAB15 PO; -COEN200C17 PO; -FURO-85 PO; -GLUCTAB7 PO; +LR 15ML/HR IV SCH; -METO25TA56 PO; -MULTCHW; -POTA550T4 PO; -RIVA1TAB4 PO; -VALS320T2 PO; +ceFAZolin 1000MG 1,000 MG/7.5 ML SYR IV SCH
[2020-08-17 10:51] LABS: INR 1.2 (0.9-1.1); Partial Thromboplastin Ratio 1.2; Prothrombin Time 12.2 Seconds (9.0-12.0)
[2020-08-17 11:16] LABS: Potassium 4.5 mmol/L (3.5-5.1)
[2020-08-17 11:17] LABS: BUN Creatinine Ratio 21.4 (10-20); Calcium 9.2 mg/dl (8.5-10.1); Creatinine Clr Calc Pharmacy 62.1 ml/min; Est GFR (African American) 76.5 ml/min
[2020-08-17] MEDS ORDERED: ROPIVACAINE 0.5% 5 MG/ML 30 ML VIAL ONE (11:38)
[2020-08-17] MEDS ORDERED: MIDAZOLAM HCL 1 MG/ML 2ML VIAL ONE (11:45)
[2020-08-17] MEDS ORDERED: fentaNYL citrate 100 MCG/2 ML VIAL ONE (11:45)
[2020-08-17] MEDS ORDERED: ONDANSETRON INJ 2 MG/ML 2 ML VIAL ONE (11:45)
[2020-08-17] MEDS ORDERED: PROPOFOL IV EMULSION 10 MG/ML 20 ML VIAL IV ONE (11:45)
[2020-08-17] MEDS ORDERED: DEXAMETHASONE SOD INJ 4 MG/ML VIAL ONE (11:45)
--- NOTE | 2020-08-17 13:49 | History & Physical Bridge Note ---
Date of Service August 17, 2020 History & Physical Bridge Note I have examined the patient, reviewed the History & Physical and in the interval since the performance of the History & Physical I have noted the following changes of clinical significance: no changes noted. INR normal. Sodium within acceptable limits.
[2020-08-17] MEDS ORDERED: ONDANSETRON INJ 2 MG/ML 2 ML VIAL IV PRN ×2 (13:53→16:56)
[2020-08-17] MEDS ORDERED: fentaNYL citrate 100 MCG/2 ML VIAL IV PRN (13:53)
[2020-08-17] MEDS ORDERED: ATROPINE SULFATE 0.1 MG/ML 10ML SYR IV PRN (13:53)
[2020-08-17] MEDS ORDERED: VANCOMYCIN HCL 1000MG/20ML VIAL ONE (14:04)
[2020-08-17] MEDS ORDERED: GENTAMICIN SULFATE 40 MG/ML 2 ML VIAL ONE (14:05)
[2020-08-17] MEDS ORDERED: BUPIVACAINE/EPINEPHRINE 0.5% MPF 1:200,000 30 ML VIAL ONE (14:17)
[2020-08-17] MEDS ORDERED: LIDOCAINE 1% LOCAL 20 ML VIAL ONE (14:18)
[2020-08-17] MEDS ORDERED: ePHEDrine sulfate 50 MG/ML SYR ONE (14:52)
--- NOTE | 2020-08-17 15:57 | Operative Report ---
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 Anesthesia Type General Complications none Disposition Accompanied Patient To Recovery: No Disposition: Recovery Room Indications Mr. Johnson has a plantar ulceration left foot fifth metatarsal phalangeal joint with radiographic findings consistent with osteomyelitis. He is taken to surgery for treatment Description of Procedure Informed consent obtained. Patient identified. He identified the operative site as the left foot fifth ray. Preop surgical timeout performed. Preop dose of IV antibiotics given. He was taken to the operating room positioned supine on the OR table. Tourniquet applied to the left thigh. Limb exsanguinated with gravity and the tourniquet inflated after prepping with Betadine and prescribing. There was a 1-1/2 cm ulceration on the plantar aspect of the fifth metatarsophalangeal joint which I did not directly communicate to the bone. The foot was not notably swollen or erythematous. DVT prophylaxis with early mobility. Postoperatively he will be placed back on his blood thinner. A tennis racquet type incision was made around the base of the fifth toe carried proximally. Subperiosteal dissection was performed along the proximal shaft. About 3 cm distal to the base of the fifth metatarsal this was transected under fluoroscopic guidance beveling from medial to lateral and dorsal to plantar. Stump was smoothed with rongeur. The tennis racquet incision was carried around the toe and around the capsular layer to dissect out the metatarsal phalangeal joint and remove the remainder of the fifth ray. The tendons were amputated as far proximal as possible and allowed to retract. The plantar ulceration was debrided and slightly enlarged to remove some hypertrophic tissue. Reactive bursitis and granulation tissue was noted underneath this and prior to removal of the toe this communicated directly with the irregular fifth metatarsal phalangeal joint. In the foot copious irrigation was performed and meticulous hemostasis was done after letting the tourniquet down. There was no abscess and the remaining tissue appeared to be healthy with good circulation and skin flaps. The skin edges were trimmed as necessary and then the surgical incision was closed with interrupted 2-0 nylon. The wound itself was packed with iodoform gauze coming out the ulceration. Fluffs were placed between the toes Xeroform applied 4 x 4's ABDs cast padding Anival wrap. His postop shoe will be applied once he reaches the floor. I took a bone biopsy from the metatarsal head and base the proximal phalanx as well as a culture from the same area. This was sent for culture. The resected digit was sent for specimen. There were no complications. Counts were correct. Blood loss was 5 cc. At the conclusion the operation spoke patient's family informed of my findings postop instructions were given. Plan is admit to the hospital and get a medicine consult. Placed on IV antibiotics. Restart his blood thinner. He can weight-bear as tolerated on his heel. Wound care consult and hopefully apply wound VAC tomorrow and follow-up in wound care clinic. Harvest Supervisor fluoroscopic image obtained. I attest to the content of the Intraoperative Record and any orders documented therein. Any exceptions are noted below.
--- NOTE | 2020-08-17 16:16 | Anesthesiology Progress Note ---
Date of Service August 17, 2020 Anesthesia Post Procedure Vital Signs Vital Signs: Temp Pulse Pulse Resp BP Pulse Ox 08/17/20 16:05 59 L 18 125/65 98 08/17/20 15:58 36.1 C L 52 L 14 136/70 100 08/17/20 10:38 36.6 C 61 20 156/71 H 98 Transfer of Care Handoff Completed per policy Notes Mental Status: alert / awake / arousable Patient Amnestic to Procedure: Yes Nausea / Vomiting: adequately controlled Pain: adequately controlled Airway Patency, RR, SpO2: stable & adequate BP & HR: stable & adequate Hydration State: stable & adequate Anesthetic Complications: no major complications apparent
[2020-08-17] MEDS ORDERED: bisacodyL 10 MG SUPP PR PRN (16:56)
[2020-08-17] MEDS ORDERED: NALOXONE HCL 0.4 MG/1 ML VIAL/CARP IV PRN (16:56)
[2020-08-17] MEDS ORDERED: TAMSULOSIN HCL 0.4 MG CAP PO PRN (16:56)
[2020-08-17] MEDS ORDERED: MAGNESIUM HYDROXIDE SUSP 30 ML UDC PO PRN (16:56)
[2020-08-17] MEDS ORDERED: traMADol HCL 50 MG TABLET PO PRN (16:56)
[2020-08-17] MEDS ORDERED: oxyCODONE HCL IR 5 MG TAB (IMMEDIATE RELEASE) PO PRN (16:56)
[2020-08-17] MEDS ORDERED: HYDROmorphone INJ 0.5 MG/0.5 ML SYR IV PRN (16:56)
[2020-08-17] MEDS: SODIUM CHLORIDE 0.9% 1000ML 1,000 ML IV SCH (17:17)
[2020-08-17] MEDS ORDERED: TRANEXAMIC ACID / 0.7% NACL 1,000 MG/100 ML BAG IV ONE (17:45)
[2020-08-17] MEDS: AMPICILLIN/SULBACTAM SOD 3,000 MG in 0.9 % SODIUM CHLORIDE 100 ML IV SCH ×2 (17:53→23:39)
--- NOTE | 2020-08-17 19:48 | Hospitalist Progress Note ---
Date of Service August 17, 2020 Assessment & Plan (1) Hyponatremia: Overall stable. Continue to follow periodically. No symptoms related to this. (2) Cardiomyopathy: Stable, no shortness of breath. Continue current meds. Follow. (3) Loss of sensation: Likely led to the foot wounds that led to his osteomyelitis. We will try to review records, otherwise outpatient follow-up (4) Atrial fibrillation: Rate controlled, anticoagulated with Xarelto (5) Arteriosclerosis of coronary artery: No angina. Continue home meds. (6) Hypertension: Blood pressure acceptable. Continue home meds. (7) DVT prophylaxis: Xarelto (8) Discharge planning issues: Per orthopedics. Admission and Anticipated Discharge Date Admission Date: August 17, 2020 Subjective Feeling good. No pain. 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 He has been struggling with osteomyelitis for a while and is happy to hopefully be past this. I notes most of his cardiac history was to the best of his knowledge noted on testing not due to symptomatic illness. Review of Systems Review of Systems: All systems reviewed & are unremarkable except as noted in HPI & below Physical Exam Physical Exam: In general he is awake and alert pleasant no distress. HEENT normocephalic atraumatic mucous membranes moist. Breathing unlabored no accessory muscle use good effort. Skin shows no rashes no pallor or icterus. Neuro shows no focal deficits. Results & Data [facility] Vital Signs (Past 12 Hours) Vital Signs Temp Pulse Pulse Resp BP Pulse Ox 08/17/20 18:43 97.5 F L 63 18 134/67 100 08/17/20 17:45 97.5 F L 54 L 18 138/53 L 98 08/17/20 17:15 57 L 18 132/57 L 100 08/17/20 16:45 97.9 F 56 L 18 132/64 08/17/20 16:35 97.2 F L 56 L 17 130/78 99 08/17/20 16:25 55 L 20 125/76 99 08/17/20 16:15 58 L 18 119/78 100 08/17/20 16:05 59 L 18 125/65 98 08/17/20 15:58 97.0 F L 52 L 14 136/70 100 08/17/20 10:38 97.9 F 61 20 156/71 H 98 PG Care Time/CCT Total # of Minutes Spent Total Time Spent with Patient: Total time spent is greater than 50% in coordination of care (as documented) at patient's floor/unit and/or counseling patient: Coding Level of Care Code 19027 Subseq Hosp Care Lvl 2 Diagnoses Hyponatremia E87.1 Cardiomyopathy I42.9 Loss of sensation R20.0 Atrial fibrillation I48.91 Arteriosclerosis of coronary artery I25.10 Hypertension I10 DVT prophylaxis Z29.9 Discharge planning issues Z02.9
[2020-08-17] MEDS: ACETAMINOPHEN 500 MG TAB PO SCH (20:27)
[2020-08-17] MEDS: DOCUSATE SODIUM 100 MG CAP PO SCH (20:27)
[2020-08-17] MEDS ORDERED: ATORVASTATIN 40 MG TAB PO SCH (21:00)
[2020-08-17] MEDS ORDERED: SENNA 8.6 MG TAB PO SCH (21:00)
[2020-08-18] MEDS: SODIUM CHLORIDE 0.9% 1000ML 1,000 ML IV SCH (05:18)
[2020-08-18] MEDS: ACETAMINOPHEN 500 MG TAB PO SCH ×2 (05:22→13:15)
[2020-08-18] MEDS: AMPICILLIN/SULBACTAM SOD 3,000 MG in 0.9 % SODIUM CHLORIDE 100 ML IV SCH ×2 (05:22→11:58)
[2020-08-18 05:49] LABS: Hematocrit (blood only) 29.5 % (42-52); Hemoglobin 10.2 g/dL (14.0-18.0); Mean Corpuscular Hgb Conc 34.6 g/dL (32-36); Mean Corpuscular Volume 89.7 fL (80-100); Mean Platelet Volume 9.7 fL (7.4-10.4); Platelet Count 138 K/uL (130-400); RDW Coefficient of Variation 14.8 % (11.5-14.5); RDW Standard Deviation 48.5 fL (36.4-46.3); Red Blood Count 3.29 M/uL (4.7-6.1)
[2020-08-18 06:27] LABS: BUN Creatinine Ratio 22.1 (10-20); Calcium 8.3 mg/dl (8.5-10.1); Creatinine Clr Calc Pharmacy 73.3 ml/min; Est GFR (African American) 93.5 ml/min; Est GFR (Non-African American) 80.7 ml/min; Potassium 4.8 mmol/L (3.5-5.1)
[2020-08-18] MEDS: DOCUSATE SODIUM 100 MG CAP PO SCH (07:21)
[2020-08-18] MEDS ORDERED: METOPROLOL SUCC 25MG EXT REL TAB PO SCH (09:00)
[2020-08-18] MEDS ORDERED: VALSARTAN 80 MG TAB PO SCH (09:00)
[2020-08-18] MEDS ORDERED: ASPIRIN 81 MG ECTAB PO SCH (09:00)
[2020-08-18] MEDS ORDERED: hydroCHLOROthiazide 25 MG TAB PO SCH (09:00)
[2020-08-18] MEDS ORDERED: allopurinoL 300 MG TAB PO SCH (09:00)
[2020-08-18] MEDS ORDERED: RIVAROXABAN 20 MG TAB PO SCH (09:00)
[2020-08-18] MEDS ORDERED: MULTIVITAMIN TAB PO SCH (09:00)
[2020-08-18] MEDS ORDERED: FUROSEMIDE 20 MG TAB PO SCH (09:00)
--- NOTE | 2020-08-18 09:11 | Progress Notes ---
DATE: 08/18/2020 Out of bed in chair. No pain or any problems. He is afebrile. His vital signs are stable. Fluid balance noted. White count 4, hemoglobin 10, hematocrit 30, platelets 138. PT/INR, PTT noted. PRP noted. Dressing clean and dry. Boot in place, although he can change this to a postop shoe. He can wiggle his toes. Dressing clean and dry. Sensation is minimal if any. Capillary refill less than 2 seconds, foot warm. Cultures and pathology pending. He is status post partial fifth ray resection, left foot for osteomyelitis. He can partial weightbear on his heel, use walker or knee scooter. Postop shoe or a boot. Elevate. We will continue on IV Unasyn for the time being. He is restarted on his Xarelto. PLAN: I spoke with Dr. Woodward. We will need to coordinate care regarding antibiotics. Options are sent home with some IV antibiotics for a short period of time of discharge on orals. Whether or not to get an ID consult as well. In terms of the wound itself, we will see if the wound care nurse can remove the packing and apply a wound VAC today and arrange followup in the [facility]ound Care Center.
--- NOTE | 2020-08-18 10:16 | Orthopedic Progress Note ---
Date of Service August 18, 2020 Assessment & Plan (1) Acute osteomyelitis: Weightbearing as tolerated with boot in place and ambulatory assistive device if necessary Currently on IV Unasyn. Discharge antibiotics will be determined by medicine service DVT prophylaxis with Xarelto Pain control with p.o. medication To see wound care nurse later today for wound VAC placement. She will coordinate follow-up examination at the wound care center Patient is already scheduled to see an infectious disease specialist in [place] Patient has his follow-up appointment in our clinic with Dr. Almanza on August 28 at 1 PM If patient has questions or concerns he was advised to contact our clinic at Admission and Anticipated Discharge Date Admission Date: August 17, 2020 Subjective This pleasant 70-year-old male seen this morning. He is day 1 status post Left Foot Fifth Ray Partial Resection due to osteomyelitis. Patient states that he has neuropathy in the left foot has been a problem for many years. Currently he states that he feels fine. He states that he has scheduled to see the wound care nurse to have a wound VAC put on his left Foot. Patient states that he also has a appointment with an infectious disease physician in [place] on August 29. Currently he is on oral Antibiotics per the medicine service. States his pain is well controlled. His dressing seems to be intact and the boot is in place. He denies chest pain, shortness of breath, fever, chills, sweats, lethargy or fatigue. Review of Systems Review of Systems: All systems reviewed & are unremarkable except as noted in Subjective Physical Exam Physical Exam: Left foot: Dressing was left in place as was the boot. Patient is able to move the digits of his left foot but is unable to detect light sensation to touch over the pads of the digits. His calf is soft and supple nontender to palpation. He is able to perform a straight leg raise test. He was up walking with Occupational Therapy with the boot in place and had no difficulty or pain. Quad strength is 4-5. He is neurovascularly intact. Results & Data ([facility]) Vital Signs (Past 12 Hours) Vital Signs Temp Pulse Resp BP Pulse Ox 08/18/20 07:31 36.4 C L 53 L 17 120/70 100 08/18/20 04:06 36.6 C 54 L 18 119/70 96 08/17/20 23:37 36.6 C 53 L 18 121/71 94 Laboratory Results 08/18/20 08/18/20 08/17/20 Range/Units 05:36 05:36 10:25 WBC 3.70 L (4.8-10.8) K/uL RBC 3.29 L (4.7-6.1) M/uL Hgb 10.2 L (14.0-18.0) g/dL Hct 29.5 L (42-52) % MCV 89.7 (80-100) fL MCH 31.0 (25-34) pg MCHC 34.6 (32-36) g/dL RDW Std Deviation 48.5 H (36.4-46.3) fL RDW Coeff of Dulce 14.8 H (11.5-14.5) % Plt Count 138 (130-400) K/uL MPV 9.7 (7.4-10.4) fL PT (9.0-12.0) Seconds INR (0.9-1.1) APTT (21.0-31.0) Seconds PTT Ratio Sodium 133 L 132 L (136-145) mmol/L Potassium 4.8 4.5 (3.5-5.1) mmol/L Chloride 105 101 (98-107) mmol/L Carbon Dioxide 22 27 (21-32) mmol/L Anion Gap 6.0 4.0 (3-11) BUN 21 H 24 H (7-18) mg/dl Creatinine 0.94 1.11 (0.6-1.4) mg/dl Est Cr Clr Drug Dosing 73.3 62.1 ml/min Est GFR ( Amer) 93.5 76.5 ml/min Est GFR (Non-Af Amer) 80.7 66.0 ml/min BUN/Creatinine Ratio 22.1 H 21.4 H (10-20) Glucose 123 H 104 H (70-99) mg/dl Calcium 8.3 L 9.2 (8.5-10.1) mg/dl 08/17/20 Range/Units 10:25 WBC (4.8-10.8) K/uL RBC (4.7-6.1) M/uL Hgb (14.0-18.0) g/dL Hct (42-52) % MCV (80-100) fL MCH (25-34) pg MCHC (32-36) g/dL RDW Std Deviation (36.4-46.3) fL RDW Coeff of Dulce (11.5-14.5) % Plt Count (130-400) K/uL MPV (7.4-10.4) fL PT 12.2 H (9.0-12.0) Seconds INR 1.2 H (0.9-1.1) APTT 31.0 (21.0-31.0) Seconds PTT Ratio 1.2 Sodium (136-145) mmol/L Potassium (3.5-5.1) mmol/L Chloride (98-107) mmol/L Carbon Dioxide (21-32) mmol/L Anion Gap (3-11) BUN (7-18) mg/dl Creatinine (0.6-1.4) mg/dl Est Cr Clr Drug Dosing ml/min Est GFR ( Amer) ml/min Est GFR (Non-Af Amer) ml/min BUN/Creatinine Ratio (10-20) Glucose (70-99) mg/dl Calcium (8.5-10.1) mg/dl
--- NOTE | 2020-08-18 10:50 | Discharge Summary ---
Date of Service August 18, 2020 Admission HPI Per Admitting Provider HISTORY OF PRESENT ILLNESS: Patient is here today for preoperative history and physical. He is scheduled to have a left foot 5th ray resection and Achilles tendon lengthening with Dr. Almanza on August 15, 2020. He has been having an ongoing wound to his left foot for the last couple of years. He states that it has healed up through the [facility] in the past, but recurred about a year ago. It was small in size. Recently, the wound has gotten larger and he went to the [facility]. They took an x-ray and referred him for further treatment. He is currently on an antibiotic, taking Bactrim. There is no history of injury. He does not get any regular type of foot care. He has neuropathy. He has special shoes, but does not necessarily use them. He is currently in a postop shoe. He had x-rays, which showed a dislocation of the left foot 5th metatarsophalangeal joint with dissolution of the metatarsal neck consistent with osteomyelitis. Due to these findings and his failure of conservative treatment, surgical intervention was recommended. He does agree to proceed with surgery. Admission Exam Per Admitting Provider PHYSICAL EXAM: General: He is alert and oriented x3. Well-dressed, well- nourished male. Normal mood and affect. Height 178 cm, weight is 78 kg, BMI is 24.62. HEENT: Head: Atraumatic, normocephalic. Eyes: Extraocular movements intact. Pupils equal, round, and reactive to light. Sclerae are normal. Ears: Hearing is grossly normal. TMs are clear with normal light reflex. Nose: Nares are patent bilaterally. Throat: Oropharynx is clear. Mucous membranes moist. Good dentition. Neck: Supple. No lymphadenopathy. Nontender to palpation. Lungs: Clear to auscultation bilaterally. No adventitious sounds. Abdomen: Soft, nontender, nondistended. Normal bowel sounds heard in all 4 quadrants. Heart: Regular rate and rhythm. Normal S1, S2. No murmurs, rubs, or gallops appreciated. On exam of his left foot, Silf[place]old test is trace positive. Dorsalis pedis and posterior tibial pulses are 1+. There is a 1.5 cm ulceration on the plantar aspect of the 5th metatarsophalangeal joint with granulating base. Dependent rubor. Mild edema. Increased flexor tone. The foot is neutrally aligned. There is no tenderness to palpation. He can wiggle the toes and has good movement of the ankle. Positive serous drainage globally. Diminished sensation. 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 Osteomyelitis of his left 5th toe. Discharge Exam Left foot: Dressing was left in place as was the boot. Patient is able to move the digits of his left foot but is unable to detect light sensation to touch over the pads of the digits. His calf is soft and supple nontender to palpation. He is able to perform a straight leg raise test. He was up walking with Occupational Therapy with the boot in place and had no difficulty or pain. Quad strength is 4-5. He is neurovascularly intact. Discharge Data Allergies Allergy/AdvReac Type Severity Reaction Status Date / Time No Known Allergies Allergy Verified 08/17/20 10:30 Consultations 08/17/20 16:56 Consult Hospitalist Routine Procedures Performed Operation Date: 08/17/20 11:40 Actual Procedures p Left Foot Fifth Ray Partial Resection(Left) - Rogelio Almanza MD Ordered Studies 08/17/20 05:00 US - OR guided needle placemen Routine Hospital Course (1) Acute osteomyelitis: Patient had uneventful overnight stay. However, the wound care nurse was unable to apply the wound vac today due to bleeding. Bulky dressing reapplied and he will follow up at the Wound clinic on 08/23/20. He is scheduled for his f/u with Dr. Almanza 08/28/20 @ 1 PM. Weightbearing as tolerated with boot in place and ambulatory assistive device if necessary Currently on IV Unasyn. Discharge antibiotics will be determined by medicine service DVT prophylaxis with Xarelto Pain control with p.o. medication To see wound care nurse later today for wound VAC placement. She will coordinate follow-up examination at the wound care center Patient is already scheduled to see an infectious disease specialist in [place] Patient has his follow-up appointment in our clinic with Dr. Almanza on August 28 at 1 PM If patient has questions or concerns he was advised to contact our clinic at [phone] Total Time Total Time Spent Total Time Spent (In Minutes): 20 mins Total Time Includes: Examination of the Patient, Discharge Planning, Medication Reconciliation and Communication With Other Providers Discharge Plan Discharge Items Patient Disposition: Home - Self-Care Reason For Visit: Left 5th Toe Osteomylitis Discharge Diagnosis: Left 5th Toe Osteomyelitis Activity: Per Instructions section Lifting: None Bathing: Keep incision dry Bathing Comment: May shower tomorrow Sexual Activity: When tolerated Exercise/Sports: Wait until after follow-up appointment Driving/Machine Use: No driving until cleared by erosion control specialist Weightbearing: Right weightbearing Weightbearing Comment: on heel with post op shoe on left foot Non-emergency contact: Surgeon Call non-emergency contact if: your symptoms worsen, your pain is not controlled, your temperature is above 101, your wound has increased redness, your wound has increased drainage and your wound pain has increased Follow-up/Referrals: Baron Sommer MD [Primary Care Provider] - Rogelio Almanza MD [Surgeon] - 08/28/20 1:00 pm Diet: Regular Addtl Attending Provider Instructions: DIET: * Resume previous diet. MEDICATIONS: * Please take your prescriptions as instructed at your pre-op appointment and/or see medication discharge instructions listed above. * Resume your Xarelto as prescribed. * If concerns develop, call your physician's office at . SPECIAL CARE INSTRUCTIONS: * Ice to left foot as needed for pain/swelling. * Elevate left foot above your heel to relieve pain/swelling. * Keep dressing clean, dry, intact. Keep wound vac in place. Have it changed by Home health nurses and in the wound clinic as appropriate. * wear post op shoe on left foot when out of bed. * You may weight bear as tolerated left lower extremity on your heel with post op shoe on. * Use walker or cane to assist with ambulation as needed. * Your surgical extremity may be discolored due to prepping agents used on the skin. A bluish-green tint is a normal variant and should not cause alarm. Call your doctor at [phone] if: * Temperature above 101 degrees * Pain not relieved by pain medicine ordered * There is increased drainage or redness from any incision * You have any unanswered questions, problems or concerns. FOLLOW UP VISIT: * Follow up with Dr. Almanza on 08/28/20 @ 1:00 PM Pending Studies at Discharge: No Stand-Alone Forms: My [employer], Smoking Cessation Medications and DC Order Prescriptions: New ciprofloxacin HCl 500 mg tablet 500 mg PO BID Qty: 28 RF: 0 Continued furosemide 20 mg tablet 20 mg PO QAM Qty: 90 RF: 3 allopurinol 300 mg tablet 300 mg PO QAM Qty: 90 RF: 3 atorvastatin 40 mg tablet 40 mg PO HS Qty: 90 RF: 3 metoprolol succinate 50 mg tablet extended release 24 hr 75 mg PO QAM Qty: 135 RF: 3 aspirin 81 mg tablet,chewable 81 mg PO QAM Qty: 30 RF: 0 doxycycline monohydrate 100 mg Capsule 100 mg PO Q2D RF: 0 Glucosamine Chondroitin 550-30-1 mg Capsule 2 cap PO QAM RF: 0 sildenafil [Viagra] 50 mg tablet 50 mg PO DAILY PRN (Reason: sexual activity) RF: 0 valsartan-hydrochlorothiazide [Diovan HCT] 320-25 mg tablet 1 tab PO QAM RF: 0 Xarelto 20 mg tablet 20 mg PO QAM RF: 0 Discharge Orders: Discharge Order (Routine); Ordered 08/18/20 Ordered By: Michael Landry Admission Data Admit Date/Time: 08/17/20 15:56 Attending Provider: Rogelio Almanza Admit Provider: Rogelio Almanza Primary Care Provider: Baron Sommer Other Providers: Stewart Licea ; [facility]
--- NOTE | 2020-08-18 10:53 | Anesthesiology Progress Note ---
Date of Service August 18, 2020 Anesthesia Post Procedure Vital Signs Vital Signs: Temp Pulse Resp BP Pulse Ox 08/18/20 07:31 36.4 C L 53 L 17 120/70 100 08/18/20 04:06 36.6 C 54 L 18 119/70 96 08/17/20 23:37 36.6 C 53 L 18 121/71 94 08/17/20 19:51 36.4 C L 60 18 124/72 100 08/17/20 18:43 36.4 C L 63 18 134/67 100 08/17/20 17:45 36.4 C L 54 L 18 138/53 L 98 08/17/20 17:15 57 L 18 132/57 L 100 08/17/20 16:45 36.6 C 56 L 18 132/64 08/17/20 16:35 36.2 C L 56 L 17 130/78 99 08/17/20 16:25 55 L 20 125/76 99 08/17/20 16:15 58 L 18 119/78 100 08/17/20 16:05 59 L 18 125/65 98 08/17/20 15:58 36.1 C L 52 L 14 136/70 100 Notes Mental Status: alert / awake / arousable and participated in evaluation Patient Amnestic to Procedure: Yes Nausea / Vomiting: adequately controlled Pain: adequately controlled Airway Patency, RR, SpO2: stable & adequate BP & HR: stable & adequate Hydration State: stable & adequate Anesthetic Complications: no major complications apparent and Pt Satisfied with anesthetic care
--- NOTE | 2020-08-18 19:23 | Hospitalist Progress Note ---
Date of Service August 18, 2020 Assessment & Plan (1) Acute osteomyelitis: Now postop with bone resection. Appearing stable for home. On review of prior cultures and literature, at this point in time Cipro 500 twice daily seems reasonablewe discussed risks and benefits of this approach versus PICC line, patient much prefers oral antibiotics. Close outpatient follow-up, if need be, outpatient infectious disease follow-up. Will be seeing wound and orthopedics. Stable for home. Discussed side effects of Cipro. (2) Hyponatremia: Overall stable. Probably reset osmole stat (3) Cardiomyopathy: Stable, no shortness of breath. Continue current meds. Follow. (4) Loss of sensation: Likely led to the foot wounds that led to his osteomyelitis. Did not see a clear cause on records, given that has not been progressive, discussed with patient that further evaluation does not appear to be time sensitive, but that a neurology evaluation could yield a little bit better answer on the root cause of his neuropathy. (5) Atrial fibrillation: Rate controlled, anticoagulated with Xarelto (6) Arteriosclerosis of coronary artery: No angina. Continue home meds. (7) Hypertension: Blood pressure acceptable. Continue home meds. (8) DVT prophylaxis: Xarelto (9) Discharge planning issues: Stable for home Admission and Anticipated Discharge Date Admission Date: August 17, 2020 Subjective No new complaints. Discussed plan. Discussed case with orthopedic surgery. Patient feels up to going home. Review of Systems Review of Systems: All systems reviewed & are unremarkable except as noted in HPI & below Physical Exam Physical Exam: In general he is awake and alert pleasant no distress. HEENT normocephalic atraumatic mucous membranes moist. Breathing unlabored no accessory muscle use good effort. Left foot with large opening where her surgery was performed, appears clean/dry/intact, no tracking erythema or exudate. No other positive findings. Results & Data Results & Data ([facility]) Vital Signs (Past 12 Hours) Vital Signs Temp Pulse Resp BP Pulse Ox 08/18/20 12:00 97.5 F L 60 18 115/68 96 08/18/20 11:42 97.5 F L 53 L 17 120/70 100 08/18/20 07:31 97.5 F L 53 L 17 120/70 100 PG Care Time/CCT Total # of Minutes Spent Total Time Spent with Patient: Total time spent is greater than 50% in coordination of care (as documented) at patient's floor/unit and/or counseling patient: Coding Level of Care Code 13721 Subseq Hosp Care Lvl 3 Diagnoses Acute osteomyelitis M86.10 Hyponatremia E87.1 Cardiomyopathy I42.9 Loss of sensation R20.0 Atrial fibrillation I48.91 Arteriosclerosis of coronary artery I25.10 Hypertension I10 DVT prophylaxis Z29.9 Discharge planning issues Z02.9
--- NOTE | 2020-08-23 15:43 | Fluoroscopy Report ---
FL foot LT 2V HISTORY: 70 years-old Male OR dislocation of the fifth MTP joint with osteomyelitis COMPARISON: Left foot radiographs 07/31/2020 TECHNIQUE: One spot fluoroscopic image of the left foot was obtained utilizing 3.8 seconds fluoroscop y time FINDINGS: Status post amputation of the fifth digit at the level of the proximal metaphyseal aspect of the fift h metatarsal. Expected postoperative soft tissue swelling with deep tissue air. Multifocal osteoarthr itis. No opaque foreign body. IMPRESSION: Fluoroscopic assistance as above. ACT 112: Negative or not required by law. The above report was generated using voice recognition software. It may contain grammatical, syntax o r spelling errors. Electronically signed by: Sergio Levin M.D. 08/23/2020 3:41 PM
== END 2020-08-18 13:34 | disposition home health service (06) ==
LOC: ASU 10:02 → 3E 15:56 → INTOOBSV 15:56

== ENCOUNTER 2021-01-03 10:56 | Observation (INO) ==
[~2021-01-03 10:56] MED LIST changes: -LR 15ML/HR IV SCH; +PIPERACILLIN/TAZOBACTAM 3.375 GM in DEXTROSE 5% 100 ML IV SCH; -ceFAZolin 1000MG 1,000 MG/7.5 ML SYR IV SCH
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
[2021-01-03] MEDS ORDERED: VANCOMYCIN HCL 2,000 MG in SODIUM CHLORIDE 0.9% 500 ML IV ONE (13:36)
[2021-01-03] MEDS ORDERED: PIPERACILLIN/TAZOBACTAM 4.5 GM/120 ML BAG IV ONE (13:36)
[2021-01-03] MEDS ORDERED: VANCOMYCIN CONSULT ACTIVE PRN ×2 (13:36→19:40)
[2021-01-03] MEDS ORDERED: PIPERACILL/TAZOBAC CONSULT ACTIVE PRN ×2 (13:36→19:40)
[2021-01-03 13:46] LABS: Basophils # (auto) 0.04 K/uL (0-0.2); Basophils % (auto) 0.8 %; Eosinophils # (auto) 0.13 K/uL (0-0.5); Eosinophils % (auto) 2.5 %; Hematocrit (blood only) 30.8 % (42-52); Immature Granulocytes # (auto) 0.01 K/uL (0.00-0.02); Immature Granulocytes % (auto) 0.2 %; Lymphocytes # (auto) 0.63 K/uL (1.2-3.4); Mean Corpuscular Hemoglobin 27.2 pg (25-34); Mean Corpuscular Hgb Conc 32.5 g/dL (32-36); Mean Corpuscular Volume 83.9 fL (80-100); Mean Platelet Volume 9.5 fL (7.4-10.4); Monocytes # (auto) 0.65 K/uL (0.11-0.59); Monocytes % (auto) 12.4 %; Neutrophils # (auto) 3.79 K/uL (1.4-6.5); Neutrophils % (auto) 72.1 %; Platelet Count 174 K/uL (130-400); RDW Coefficient of Variation 18.4 % (11.5-14.5); RDW Standard Deviation 56.8 fL (36.4-46.3); Red Blood Count 3.67 M/uL (4.7-6.1); White Blood Count 5.25 K/uL (4.8-10.8)
[2021-01-03 14:04] LABS: Albumin Level 3.3 gm/dl (3.4-5.0); BUN Creatinine Ratio 16.7 (10-20); Calcium 9.2 mg/dl (8.5-10.1); Creatinine Clr Calc Pharmacy 81.1 ml/min; Est GFR (African American) 100.9 ml/min; Est GFR (Non-African American) 87.1 ml/min; Potassium 4.6 mmol/L (3.5-5.1)
[2021-01-03 14:06] LABS: Albumin Globulin Ratio 0.7 (0.9-2); Bilirubin,Total 0.9 mg/dl (0.2-1); C Reactive Protein 3.59 mg/dl (0-0.29); Globulin 4.6 gm/dl (2.5-4.0); Total Protein 7.9 gm/dl (6.4-8.2)
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
[2021-01-03] MEDS ORDERED: ONDANSETRON INJ 2 MG/ML 2 ML VIAL IV PRN (19:40)
[2021-01-03] MEDS ORDERED: ACETAMINOPHEN 325 MG TAB PO PRN (19:40)
[2021-01-03] MEDS ORDERED: PIPERACILLIN/TAZOBACTAM 3.375 GM in DEXTROSE 5% 100 ML IV ONE (20:45)
[2021-01-03] MEDS ORDERED: ATORVASTATIN 40 MG TAB PO SCH (21:00)
[2021-01-03] MEDS: PIPERACILLIN/TAZOBACTAM 3.375 GM in DEXTROSE 5% 100 ML IV SCH (21:23)
[2021-01-04] MEDS ORDERED: FLUARIX QUADRIVALENT 0.5 ML SYR IM ONE (01:15)
[2021-01-04] MEDS: VANCOMYCIN HCL 1,000 MG in SODIUM CHLORIDE 0.9% 250 ML IV SCH ×2 (02:06→14:02)
[2021-01-04] MEDS: PIPERACILLIN/TAZOBACTAM 3.375 GM in DEXTROSE 5% 100 ML IV SCH ×2 (04:16→12:13)
[2021-01-04 07:07] LABS: Hematocrit (blood only) 27.9 % (42-52); Hemoglobin 9.2 g/dL (14.0-18.0); Mean Corpuscular Hemoglobin 27.4 pg (25-34); Mean Platelet Volume 9.5 fL (7.4-10.4); Platelet Count 160 K/uL (130-400); RDW Coefficient of Variation 18.2 % (11.5-14.5); RDW Standard Deviation 55.5 fL (36.4-46.3); Red Blood Count 3.36 M/uL (4.7-6.1); White Blood Count 4.07 K/uL (4.8-10.8)
[2021-01-04 07:33] LABS: Albumin Level 2.6 gm/dl (3.4-5.0); Calcium 8.9 mg/dl (8.5-10.1); Creatinine Clr Calc Pharmacy 95.8 ml/min; Est GFR (Non-African American) 93.2 ml/min; Potassium 4.4 mmol/L (3.5-5.1)
[2021-01-04 07:36] LABS: Albumin Globulin Ratio 0.6 (0.9-2); Globulin 4.1 gm/dl (2.5-4.0); Total Protein 6.7 gm/dl (6.4-8.2)
[2021-01-04 07:49] LABS: Acanthocytes 1+; Basophils # (auto) 0.08 K/uL (0-0.2); Eosinophils # (auto) 0.13 K/uL (0-0.5); Eosinophils % (auto) 3.2 %; Lymphocytes # (auto) 0.64 K/uL (1.2-3.4); Lymphocytes % (auto) 15.7 %; Monocytes # (auto) 0.55 K/uL (0.11-0.59); Monocytes % (auto) 13.5 %; Neutrophils # (auto) 2.67 K/uL (1.4-6.5); Neutrophils % (auto) 65.6 %
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
[2021-01-04] MEDS ORDERED: hydroCHLOROthiazide 25 MG TAB PO SCH (09:00)
[2021-01-04] MEDS ORDERED: ASPIRIN 81 MG CHEW PO SCH (09:00)
[2021-01-04] MEDS ORDERED: allopurinoL 300 MG TAB PO SCH (09:00)
[2021-01-04] MEDS ORDERED: FUROSEMIDE 20 MG TAB PO SCH (09:00)
[2021-01-04] MEDS ORDERED: VALSARTAN 80 MG TAB PO SCH (09:00)
[2021-01-04] MEDS ORDERED: METOPROLOL SUCC 25MG EXT REL TAB PO SCH (09:00)
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
--- NOTE | 2021-01-04 14:07 | Pharmacy Report ---
Pharmacy Vanc AUC Short Note - Date of Service January 04, 2021 - Assessment & Plan Assessment 70 year old M receiving vanc/zosyn for infected hematoma. Patient started on vancomycin/zosyn empirically, plan to be discharged today with oral antibiotics Plan Vancomycin * AUC/BULMARO is the preferred PK/PD target for vancomycin * AUC guided dosing is effective and associated with decreased risk of nephrotoxicity compared to traditional trough targets * Vancomycin 1000 mg q12H is predicted to achieve gaol AUC 400-600. * Will continue current dosing through today, plans to be discharged after 1400 vancomycin dose. Pharmacy will continue to follow and will adjust dose/frequency as necessary. Thank you.
== END 2021-01-04 15:56 | disposition home or self-care (01) ==
LOC: ED 10:56 → 2N 10:56 → SUATTDRO 14:51 → 2N 17:52

== ENCOUNTER 2024-10-12 11:49 | Observation (INO) ==
--- NOTE | 2024-10-12 13:16 | History & Physical Bridge Note ---
Date of Service October 12, 2024 History & Physical Bridge Note I have examined the patient, reviewed the History & Physical and in the interval since the performance of the History & Physical I have noted the following changes of clinical significance: no changes noted. I reviewed the indications, procedure, risks and alternatives with the patient, and answered all questions. We discussed various options including in the use of a pacemaker alone, he will likely pace frequently since we will have to place him back on beta-blockade to protect his ventricle with his cardiomyopathy with possible ventricular dyssynchrony therefore biventricular pacing would be required. He also has a history of a very low ejection fraction and has ventricular tachycardia identified on monitoring, to prevent sudden cardiac and ICD should be used. We will therefore plan on implanting a biventricular ICD. Patient un derstands and agrees to the procedure. Consent obtained. I also reviewed the risks and use of sedation, patient understands and consent obtained.
--- NOTE | 2024-10-12 13:17 | Pre Anesthesia Assessment ---
Date of Service October 12, 2024 Pre Sedation Assessment Vital Signs Pulse Resp BP Pulse Ox O2 Del Method 10/12/24 12:08 66 18 133/89 97 Room Air Cardiovascular + irregularly irregular Respiratory normal respiratory effort, lungs clear to auscultation Pre-Sedation Airway Assessment Smoking Status: Former smoker Hx Sleep Apnea: No Hx Difficult Intubation: No Mallampati Class: II ASA: ASA3 NPO Status Date of Last Intake of Fluids: 10/11/24 Date of Last Intake of Solid Food: 10/11/24 Procedure Planning Contraindications for Sedation: none Current Medications Reviewed: Yes Notes The planned sedation has been discussed with the patient. Informed Consent was obtained. I have identified the patient, determined the appropriateness of sedation and have assessed the patient immediately prior to the procedure. All medicine(s) and interventions are by my order.
[2024-10-12] MEDS: VANCOMYCIN HCL 1000MG/20ML VIAL ONE (14:23)
[2024-10-12] MEDS: WATER, STERILE FOR INJ 10 ML VIAL ONE (14:23)
[2024-10-12] MEDS: ceFAZolin 330 MG/ML 1 GM VIAL ONE (14:23)
[2024-10-12] MEDS: LIDOCAINE 1% LOCAL 20 ML VIAL ONE (14:23)
[2024-10-12] MEDS: MIDAZOLAM HCL 5 MG/ML 1 ML VIAL ONE (14:36)
--- NOTE | 2024-10-12 15:12 | Electrophysiology Report ---
Date of Service October 12, 2024 Electrophysiology Procedure Electrophysiology Procedure Report Preoperative diagnosis: Atrial fibrillation with slow ventricular response, cardiomyopathy, congestive heart failure Postoperative diagnosis: Same Procedure: Ventricular defibrillator lead implantation Coronary sinus angiography Left ventricular lead implantation Biventricular ICD implantation Surgeon: Ino Hinds MD Estimated blood loss: 50 cc Complications: None Disposition: Cardiology recovery Procedure details: After obtaining informed consent for the procedure, the patient was brought to the laboratory and prepped and draped in the standard sterile manner. The left prepectoral region was anesthetized with 1% lidocaine local anesthetic and left axillary venipuncture was performed by percutaneous technique and a guidewire placed through the left subclavian vein into the superior vena cava. The area was further infiltrated with 1% lidocaine local anesthetic and a 5 cm incision was made parallel to the left clavicle and 2 cm below it and carried down to the anterior pectoralis fascia. An ICD pocket was formed by blunt dissection anterior to the pectoralis fascia and a vancomycin- soaked sponge was placed in the pocket. A 10.5 [place] [employer] lead introducer was placed over the guidewire into the left subclavian vein, the dilator and guidewire were removed and a bipolar active fixation steroid tipped ventricular ICD lead was advanced through the introducer into the superior vena cava. Using a curved stylette the ventricular lead was advanced through the right ventricular outflow tract into the pulmonary artery and then using a straight stylette was positioned in the right ventricular apex. The screw was extended fixing the lead in position. Pacing and sensing thresholds were evaluated in bipolar configuration and are recorded on the implant data sheet. Diaphragmatic pacing was evaluated at full bipolar output as indicated on the data sheet. A guidewire was placed through the introducer and the introducer was stripped from the lead and guidewire. The short guidewire was exchanged for a long guidewire and a Divine coronary sinus sheath was advanced to position in the right atrium. The curved obturator was placed through the sheath and using x-ray dye the os of the coronary sinus was identified. A guidewire was placed through the introducer into the coronary sinus and the [place] sheath was advanced into the coronary sinus. A balloon occlusion catheter was advanced through this sheath into the coronary sinus, the balloon was inflated and dye was injected in various projections to obtain a coronary sinus angiogram. A good vessel was identified and a 0.014 inch guidewire was advanced into this vessel. A quadripolar coronary sinus catheter was advanced over the guidewire into good distal position. The left ventricular pacing threshold was evaluated in various configurations, as recorded on the implant data sheet. Diaphragmatic pacing was evaluated at full output, as anna cated on the data sheet. Once this lead was in position the introducer system was removed from the lead and the lead was attached to the anterior pectoral fascia using 2 sutures of 2-0 silk around the lead collar. 2 sutures of 2-0 silk were placed around the ventricular lead collar as well. The vancomycin-soaked sponge was removed from the pocket, hemostasis was obtained, the ICD was attached to the leads and placed in the pocket with the leads coiled beneath it. The incision was closed with a running double subcutaneous closure of 3-0 Vicryl absorbable suture, followed by running subcuticular skin closure of 4-0 Vicryl absorbable suture. Bacitracin ointment was placed on the incision and a pressure dressing applied. [facility] [place] Electrophysiology codes Indication for Procedure (1) Cardiomyopathy: (2) Atrial fibrillation: (3) Coronary artery disease: (4) NSVT (nonsustained ventricular tachycardia): Pacing Procedure 1: Pacin BiV electrode w/Pacer / ICD implant, add on code ICD Procedure 1: ICD: 01967 Single or dual ICD implant, chronic leads Miscellaneous Procedures Procedure 1: EP Miscellaneous: 31586-48 Venography, CS supevsion/interp Procedure 2: EP Miscellaneous: 49305 Contrast injection for venography PG Moderate Sedation Codes Moderate Sedation Codes Procedure 1: Sedation/Anesthesia: 66252 Mod Sedation by the same physician;Init15 Min Child Age 5 & Up Procedure 2: Sedation/Anesthesia: 66175 Mod Sedation by the same physician; Ea [id number] Minutes
[2024-10-12] MEDS ORDERED: ACETAMINOPHEN W/CODEINE #3 1 TAB PO PRN (15:13)
[2024-10-12] MEDS ORDERED: ACETAMINOPHEN 325 MG TAB PO PRN (15:13)
--- NOTE | 2024-10-12 15:13 | Post Anesthesia Assessment ---
Date of Service October 12, 2024 Post Sedation Assessment Vital Signs Pulse Resp BP Pulse Ox O2 Del Method 10/12/24 12:08 66 18 133/89 97 Room Air Recovery Score Activity: Moves 4 extremities Respiration: Deep Breath/Cough Circulation: +/-20% PreAnes Value Consciousness: Fully Awake Oxygen Saturation: > 92% On Room Air Discharge Sedation Level of Care: Fast Track Phase II Post Sedation Plan On clinical assessment, the patient appears to have tolerated the sedation without complications. Patient is recovering as anticipated. Patient will continue to be monitored by nursing and may be discharged when sedation discharge criteria are met per below protocol. Upon Completions of procedure up to 15 minutes continue every 5 minute vital signs and the P.A.R. score; then discharge to a Phase I or Fast Track to Phase II per the following guidelines: * Discharge Patient to appropriate Phase II area if PAR is 8 or greater or return to pre- procedure baseline. The post - procedure orders will be as directed. * If PAR score is less than 8 or not return to pre-procedure baseline then patient will follow Phase I monitoring till PAR is reached for Phase II. The Phase I may be done in procedure room or may call to secure a Phase I area. * If naloxone or flumazenil are used for reversal, hold in Phase I for continued monitoring from when last reversal dose was given for a minimum of 60 minutes or longer pending the nurse and/or physician discretion of patient condition before discharge to Phase II. Please call the Sedation Physician to re-evaluate and complete post-note for discharge to Phase II area. Do NOT discharge from procedure sedation or Phase 1 until post- sedation evaluation note is complete by procedure /sedation MD Sedation Discharge Instructions to be given to the patient at discharge to home.
[2024-10-12] MEDS ORDERED: DOXYCYCLINE HYCLATE 100 MG CAP PO PRN (16:03)
[2024-10-12] MEDS: VALSARTAN/SACUBITRIL 103/97MG TAB PO SCH (20:18)
[2024-10-12] MEDS: ATORVASTATIN 40 MG TAB PO SCH (20:18)
[2024-10-13 07:20] VITALS: BP 121/78; RESP 16; TEMP 97.9; O2SAT 98
[2024-10-13] MEDS: METOPROLOL SUCC 50MG EXT REL TAB PO SCH (08:24)
[2024-10-13] MEDS: FOLIC ACID 400 MCG TAB PO SCH (08:24)
[2024-10-13] MEDS: EMPAGLIFLOZIN 10 MG TAB PO SCH (08:25)
[2024-10-13] MEDS: TORSEMIDE 20 MG TAB PO SCH (08:25)
--- NOTE | 2024-10-13 09:09 | XRay Report ---
XR chest 2V PA/lateral CLINICAL HISTORY: EXACT TIME ORDERED Evaluate for pneumothorax and l COMPARISON STUDY: None FINDINGS: Left-sided pacemaker/ICD is present. Heart size and pulmonary vasculature are normal. No co nsolidation or pleural effusion. No pneumothorax. IMPRESSION: No pneumothorax seen. ACT 112: Negative or not required by law. Electronically signed by: Linwood Mccabe M.D. 10/13/2024 9:07 AM
--- NOTE | 2024-10-13 09:28 | Cardiology Progress Note ---
Date of Service October 13, 2024 Assessment & Plan (1) Status post implantation of automatic cardioverter/defibrillator (AICD): Plan Postop day #1: He is doing very well, his site looks good, he has minimal discomfort, lead position is good and the device is working well. He is stable for discharge. Cardiomyopathy: Hopefully with regularization of his rhythm and biventricular pacing and reintroduction of heart failure medications his left ventricular function will improve. Admission and Anticipated Discharge Date Admission Date: October 12, 2024 Subjective He is feeling well this morning, he has no incisional discomfort, no chest discomfort and no shortness of breath. He has no palpitations or awareness of his arrhythmia. Physical Exam Physical Exam: The incision is clean and dry with minimal bleeding, no significant ecchymosis or drainage. No swelling. Cardiac rhythm is regular with no rub Lungs are clear Results & Data Vital Signs (Past 12 Hours) Vital Signs Temp Pulse Pulse Resp BP Pulse Ox O2 Del Method 10/13/24 07:19 36.6 C 71 16 121/78 98 Room Air 10/13/24 05:41 72 10/13/24 03:13 36.5 C 72 18 108/62 97 Room Air 10/12/24 23:22 70 10/12/24 23:17 36.4 C L 81 20 120/69 96 Room Air Laboratory Results Intake and Output 10/12/24 10/13/24 10/13/24 22:59 06:59 14:59 Intake Total 240 / 480 240 / 480 Balance 240 / 480 240 / 480 Intake: Oral 240 / 480 240 / 480 Other: Weight 65.4 kg Diagnostic Findings Postop ECG: Ventricular pacing with underlying atrial fibrillation, appropriate biventricular pacing. Chest x-ray: Good lead position, no pneumothorax Telemetry: Appropriate ventricular pacing throughout. ICD evaluation: Excellent pacing and sensing characteristics, nearly continuous ventricular pacing appropriately. PG Care Time/CCT Total # of Minutes Spent Total Time Spent with Patient: Total time spent is greater than 50% in coordination of care (as documented) at patient's floor/unit and/or counseling patient: Coding Level of Care Code 37684 Post Operative Follow-Up Diagnoses Status post implantation of automatic cardioverter/defibrillator (AICD) Z95.810 CPT Codes Implantable Defib Multi lead programming - 11421 ([id number])
[2024-10-13 10:00] VITALS: PULSE 71
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
--- NOTE | 2024-10-15 14:52 | Electrocardiogram Report ---
Test Reason : Blood Pressure : */* mmHG Vent. Rate : 71 BPM Atrial Rate : 42 BPM P-R Int : * ms QRS Dur : 174 ms QT Int : 482 ms P-R-T Axes : * 244 51 degrees QTcB Int : 523 ms Ventricular-paced rhythm Underlying atrial fibrillation Abnormal ECG When compared with ECG of 06-Apr-2024 09:52, Electronic ventricular pacemaker has replaced Atrial fibrillation Vent. rate has increased by 30 bpm Confirmed by Ino Hinds ([id number]) on 10/15/2024 2:52:25 PM Referred By: Brandy Camarena Confirmed By: Ino Hinds
== END 2024-10-13 11:24 | disposition home or self-care (01) ==
LOC: EP 11:49 → INTOOBSV 14:01 → 2S 14:01
PROC: EPB.ICD (2024-10-12 13:00)